=== PATIENT | male | born 1945 | race Caucasian/White ===

== ENCOUNTER 2016-10-10 06:34 | Inpatient (IN) | payer MEDICARE ==
[2016-10-10] VITALS (7 sets, daily range): BP systolic 127–151; BP diastolic 75–91
[~2016-10-10] VITALS: Ht 185.4 cm; Wt 88.6 kg
--- NOTE | 2016-10-10 09:18 | DIAGNOSTIC IMAGING REPORT ---
PROCEDURE: CT ABD/PELVIS WITH CONTRAST CLINICAL INDICATION: Epigastric pain, initial encounter TECHNIQUE: 125 ml of Isovue 300 were injected intravenously and axial images were obtained of the entire abdomen and pelvis with sagittal and coronal reformations. COMPARISON: None. FINDINGS: ABDOMEN: Dependent atelectasis in both lung bases. Heart size is normal. Small gallstones with suggestion of wall thickening. No biliary distention. Liver, pancreas, spleen, adrenal glands and kidneys are normal. Moderate atherosclerosis of the aorta. Small hiatal hernia. Nonspecific bowel gas pattern. PELVIS: Normal appendix. Mild sigmoid diverticulosis. 1.3 cm fat containing supraumbilical hernia. Mildly enlarged prostate. There is no pelvic mass, inflammatory changes or free fluid. Moderate degenerative changes. Mild chronic L1 compression fracture. IMPRESSION: 1. Cholelithiasis with suggestion of wall thickening. Recommend right upper quadrant ultrasound 2. Small hiatal hernia 3. Mild sigmoid diverticulosis 4. 1.3 cm fat-containing supraumbilical hernia. 5. Results discussed with Dr. Fischer All CT scans at this facility use dose modulation, iterative reconstruction, and/or weight-based dosing when appropriate to reduce radiation dose to as low as reasonably achievable.
--- NOTE | 2016-10-10 10:13 | ED NURSING NOTES ---
Clinical Report - Nurses [facility] [address] [place] [address] 10/10/2016 6:35 Patient: KRISTINA WEINBERG TRIAGE Triage time 06:39 Oct 10 2016. Acuity: LEVEL 3. Chief Complaint: ABDOMINAL PAIN. SEPSIS SCREEN: Sepsis Screen. Negative (no infection suspected/documented). --06:43 Priscila Lewis R.N. 06:39 10/10/16. BP: 164/118. HR: 86. RR: 24. O2 saturation: 100%. Temp: 97.8 F. Pain level now 06/03. --06:43 Priscila Lewis R.N. Weight: 87.5 kg. Height/Length: 73 inches. BMI: 25.5. --06:38 Priscila Lewis R.N. Medications Carvedilol. --06:42 Priscila Lewis R.N. LOSARTAN. --06:42 Priscila Lewis R.N. HCTZ. --06:42 Priscila Lewis R.N. Omeprazole. --06:42 Priscila Lewis R.N. Spironolactone. --06:42 Priscila Lewis R.N. Atorvastatin. --06:42 Priscila Lewis R.N. Allopurinol. --06:42 Priscila Lewis R.N. Colcrys. --06:42 Priscila Lewis R.N. Aspirin. --06:42 Priscila Lewis R.N. Glucosamine. --06:43 Priscila Lewis R.N. Multivitamin. --06:43 Priscila Lewis R.N. Subper b complex. --06:43 Priscila Lewis R.N. Vtammin d 3. --06:43 Priscila Lewis R.N. Vitamin c. --06:43 Priscila Lewis R.N. Allergies Penicillins. --06:40 Priscila Lewis R.N. Medication/allergy information source: the patient. --06:43 Priscila Lewis R.N. History Arrived by private vehicle. Historian: patient. Accompanied by family. Primary physician (John). This started just prior to arrival. Onset. (2 AM). 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 PAST MEDICAL HX: Immunizations: seasonal influenza. SOCIAL HX: Smoker- current status unknown (quit 39 years ago). Regular alcohol use; consumes beer daily. (3-4 x a week). No drug use. No recent travel. No known contact with a sick individual. ABUSE ASSESSMENT: No report of abuse. NUTRITIONAL RISK ASSESSMENT: The nutritional risk assessment revealed no deficiencies. FUNCTIONAL ASSESSMENT: Functional assessment: no impairments noted. LEARNING NEEDS ASSESSMENT: The learning needs assessment revealed no barriers. SKIN INTEGRITY ASSESSMENT: Skin integrity risk assessment completed. No skin integrity risk identified. --06:43 Priscila Lewis R.N. PROBLEMS: Left bundle branch block. Gout. Heart Disease. Hypertension. --06:40 Priscila Lewis R.N. ADDITIONAL SURGERIES: Carpal Tunnel Surgery. Cataract Surgery. Shoulder Surgery. Tonsillectomy. Wrist. --06:40 Priscila Lewis R.N. Interventions ID band on patient. --06:43 Priscila Lewis R.N. PHYSICAL ASSESSMENT 06:45 10/10/16. GENERAL / NEURO / PSYCH: Alert. Oriented X 4. Appears anxious and in distress. HEENT: Mucous membranes are pink. RESPIRATORY: Respirations not labored. Breath sounds within normal limits. CVS: Capillary refill less than 2 seconds. GI / : The patient has had nausea. Emesis noted. Has vomited several times (once in ED). Abdomen soft. Abdominal tenderness in the right upper quadrant and epigastric area. No rebound tenderness or diarrhea. No CVA tenderness or urethral discharge. No blood in the stool. ( no urinary symptoms). SKIN: Skin is warm and dry. Skin is slightly diaphoretic. --07:24 Priscila Lewis R.N. NURSING PROGRESS NOTES 06:44 10/10/16. The initial plan of care for this patient includes an assessment with efforts to address the presence of pain; impairment of the gastrointestinal system. Patient gowned. Reassurance given. Patient identifiers checked. Call light placed in reach. Side rails up x 1. Bed placed in lowest position. Brakes of bed on. Patient ready for evaluation. --06:44 Priscila Lewis R.N. 06:50 10/10/2016 Site #1 started via IV in the right antecubital space with an 18g angiocath, with aseptic technique and good blood return; one attempt. Blood drawn: rainbow set (plus lactic acid). --06:55 Priscila Lewis R.N. 07:18 10/10/2016 Zofran (Ondansetron HCl) IVP 4 mg given over 1 minute(s) via site #1. Allergies verified and confirmed 5 rights. IV patency established. IV site checked: no pain, redness, or swelling. IV flushed thoroughly pre- and post-medication administration. IVP given by RN. --07:22 Priscila Lewis R.N. 07:19 10/10/2016 Dilaudid (HYDROmorphone HCl PF) IVP 1 mg given over 1 minute(s) via site #1. Allergies verified, confirmed 5 rights and sedative warning given to the patient. IV patency established. IV site checked: no pain, redness, or swelling. IV flushed thoroughly pre- and post-medication administration. IVP given by RN. --07:22 Priscila Lewis R.N. ( Report from EMILY Francois to assume care. Pt. resting quietly, states he is much better since being medicated, now 12/02. Call light within reach.). --07:31 Sujatha Monreal R.N. 07:26 10/10/16. BP: 150/99. HR: 78. RR: 20. O2 saturation: 100%. Pain level now: 12/02. --07:31 Sujatha Monreal R.N. 07:56 10/10/2016 Dilaudid (HYDROmorphone HCl PF) IVP 1 mg given over 2 minute(s) via site #1. Allergies verified and confirmed 5 rights. IV patency established. IV site checked: no pain, redness, or swelling. IV flushed thoroughly pre- and post-medication administration. IVP given by RN. --07:56 Sujatha Monreal R.N. EKG time: (803). EKG was performed by a tech and shown to the ED physician. --08:16 Manuel Mckeon ( UA sent to lab. Pt resting quietly, call light in reach.). --08:56 Sujatha Monreal R.N. 08:56 10/10/16. BP: 148/68. HR: 74. RR: 73. O2 saturation: 95%. Pain level now: 12/02. --08:56 Sujatha Monreal R.N. ( Pt is resting comfortably in his room, refused Dilaudid at this time, reports pain is controlled, at bedside. Denies current needs.). --09:27 Ishmael King R.N. 09:15 10/10/16. BP: 120/70. HR: 90. RR: 16. O2 saturation: 98% on room air. Pain level now: 11/01. --09:27 Ishmael King R.N. 10:59 10/10/2016 Started bag #1 1000 mL IV Fluids IV NS (Saline); at 1000 mL/hr over 1 hour(s) via site #1. IV patency established. IV site checked: no pain, redness, or swelling. IV flushed thoroughly pre- and post-medication administration. --10:59 Ana Duncan R.N. 10:59 10/10/2016 Dilaudid (HYDROmorphone HCl PF) IVP 1 mg given over 2 minute(s) via site #1. Allergies verified, confirmed 5 rights and sedative warning given to the patient. IV patency established. IV site checked: no pain, redness, or swelling. IV flushed thoroughly pre- and post-medication administration. IVP given by RN. --10:59 Ana Duncan R.N. 11:01 10/10/16. Reassessment after medication administered. He is resting quietly. Overall patient status is improved- he states feels better. GI / : Denies vomiting. SKIN: Skin is warm and dry. --11:01 Ana Duncan R.N. 10:59 10/10/16. BP: 155/79. HR: 74. RR: 16. O2 saturation: 99% on room air. Pain level now: 11/01. --11:01 Ana Duncan R.N. 11:30 10/10/16. BP: 140/74. HR: 79. RR: 18 (unlabored). O2 saturation: 96% on room air. Pain level now: 12/02. --11:57 Mini Louis R.N. 11:50 pt waiting to be admitted, at bedside. pt states pain has improved. --11:[address] Dr. Whitman in to see pt prior to transporting upstairs. --12:15 Mini Louis R.N. 12:16 10/10/2016 IV Fluids IV NS Continued: upon admission at the rate of 999 mL/hr. 400 ml mL remaining bag #1. IV patency established. IV site checked: no pain, redness, or swelling. IV flushed thoroughly. --12:16 Mini Louis R.N. DISPOSITION / DISCHARGE Departure time: 1213. Condition at departure: stable. Admitted to Acute Care (309B). Transported via wheelchair by transport team. Report was given to a nurse via a phone call. Report included patient's care, treatment, medications, reviewed medication reconcilliation, and condition (including any recent changes or anticipated changes). All questions were answered. Report was acknowledged and care was transferred. (EMILY Navarro). Medication list reviewed and validated with the patient. --12:14 Mini Louis R.N. 11:30 10/10/16. BP: 140/74. HR: 79. RR: 18. O2 saturation: 96% on room air. Pain level now: 12/02. --12:14 Mini Louis R.N. 11:50 10/10/16. Temp: 97.6 F (oral). --12:22 Mini Louis R.N. Locked/Released at 10/13/2016 0:53 by Mini Louis R.N.
--- NOTE | 2016-10-10 10:13 | ED ORDER SUMMARY ---
..... Patient: KRISTINA WEINBERG OrderSheet [facility] VisitID: [id number] [address] [place] [address] 71y, M Registration Date/Time: 10/10/2016 ORDER SHEET Weight: 87.5 kg Allergies: Penicillins GENERAL ORDERS: CBC w Diff Urgent (06:54 10/10/2016 EIndergaelzen R.N. verbal order read back to Didier Ma) (Ack 6:56 AMcQuoid ER Tech1) (6:56 AMcQuoid ER Tech1) CMP Urgent (06:54 10/10/2016 EIndergaelzen R.N. verbal order read back to Didier Ma) (Ack 6:56 AMcQuoid ER Tech1) (6:56 AMcQuoid ER Tech1) Amylase Urgent (06:54 10/10/2016 EIndergaelzen R.N. verbal order read back to Didier Ma) (Ack 6:56 AMcQuoid ER Tech1) (6:56 AMcQuoid ER Tech1) Lipase Urgent (06:54 10/10/2016 EIndergaelzen R.N. verbal order read back to Didier Ma) (Ack 6:56 AMcQuoid ER Tech1) (6:56 AMcQuoid ER Tech1) Lactate, Serum Urgent (06:54 10/10/2016 EIndergaelzen R.N. verbal order read back to Didier Ma) (Ack 6:56 AMcQuoid ER Tech1) (6:56 AMcQuoid ER Tech1) NPO (06:54 10/10/2016 EInderbitzen R.N. verbal order read back to Didier Ma) (6:54 EInderbitzen R.N.) UA-Culture if indicated Urgent (07:01 10/10/2016 Didier Ma) (Ack 7:03 AMcQuoid ER Tech1) (12:20 HKone R.N.) CT Abd/Pel w Cont (No) (GRF okanita) Urgent (07:45 10/10/2016 Didier Ma) (Ack 7:47 RKarbob) (0:53 HKone R.N.) Troponin-I Urgent (07:53 10/10/2016 Didier Ma) (7:57 SStone R.N.) EKG - ER Stat (07:53 10/10/2016 Didier Ma) (7:57 SStone R.N.) US Abdomen Limited (No) Urgent (09:19 10/10/2016 Didier Ma) (Ack 9:21 RKaruga) (0:53 HKone R.N.) MEDICATION ORDERS: IV FLUIDS: IV Saline Lock (06:54 10/10/2016 EInderbitzen R.N. verbal order read back to Didier Ma) (6:55 EInderbitzen R.N.) Zofran IV 4 mg (NOW) (07:16 10/10/2016 Didier Ma) (7:22 EInderbitzen R.N.) Dilaudid IV 1 mg (HIGH ALERT MEDICATION, NOW) (07:16 10/10/2016 Didier Ma) (7:22 EInderbitzen R.N.) Dilaudid IV 1 mg (HIGH ALERT MEDICATION, NOW) (07:52 10/10/2016 Didier Ma) (Ack 7:53 SStone R.N.) (7:56 SStone R.N.) Dilaudid IV 1 mg (once now. may repeat in 15 minutes for total of 2 mg if pain still > 5/10) (09:19 10/10/2016 Didier Ma) (10:59 Jordin R.N.) IV NS : initial bolus 1000 mL (1000 mL/hr), then none - for X1 (NOW) (10:14 10/10/2016 Didier Ma) (10:59 Jordin R.N.) ORDER SHEET NOTES: [Electronically signed by Mini Louis R.N. (00:53 10/13/2016)] [Electronically signed by Jamarcus Fischer Dr. (11:27 10/15/2016)] [Electronically locked/signed by Mini Louis R.N. (00:53 10/13/2016)]
--- NOTE | 2016-10-10 10:13 | ED ORDER SUMMARY ---
..... Patient: KRISTINA WEINBERG OrderSheet [facility] VisitID: [id number] [address] [place] [address] 71y, M Registration Date/Time: 10/10/2016 ORDER SHEET Weight: 87.5 kg Allergies: Penicillins GENERAL ORDERS: CBC w Diff Urgent (06:54 10/10/2016 EIndergaelzen R.N. verbal order read back to Didier Ma) (Ack 6:56 AMcQuoid ER Tech1) (6:56 AMcQuoid ER Tech1) CMP Urgent (06:54 10/10/2016 EIndergaelzen R.N. verbal order read back to Didier Ma) (Ack 6:56 AMcQuoid ER Tech1) (6:56 AMcQuoid ER Tech1) Amylase Urgent (06:54 10/10/2016 EIndergaelzen R.N. verbal order read back to Didier Ma) (Ack 6:56 AMcQuoid ER Tech1) (6:56 AMcQuoid ER Tech1) Lipase Urgent (06:54 10/10/2016 EIndergaelzen R.N. verbal order read back to Didier Ma) (Ack 6:56 AMcQuoid ER Tech1) (6:56 AMcQuoid ER Tech1) Lactate, Serum Urgent (06:54 10/10/2016 EIndergaelzen R.N. verbal order read back to Didier Ma) (Ack 6:56 AMcQuoid ER Tech1) (6:56 AMcQuoid ER Tech1) NPO (06:54 10/10/2016 EInderbitzen R.N. verbal order read back to Didier Ma) (6:54 EInderbitzen R.N.) UA-Culture if indicated Urgent (07:01 10/10/2016 Didier Ma) (Ack 7:03 AMcQuoid ER Tech1) (12:20 HKone R.N.) CT Abd/Pel w Cont (No) (GRF okanita) Urgent (07:45 10/10/2016 Didier Ma) (Ack 7:47 RKarbob) (0:53 HKone R.N.) Troponin-I Urgent (07:53 10/10/2016 Didier Ma) (7:57 SStone R.N.) EKG - ER Stat (07:53 10/10/2016 Didier Ma) (7:57 SStone R.N.) US Abdomen Limited (No) Urgent (09:19 10/10/2016 Didier Ma) (Ack 9:21 RKaruga) (0:53 HKone R.N.) MEDICATION ORDERS: IV FLUIDS: IV Saline Lock (06:54 10/10/2016 EInderbitzen R.N. verbal order read back to Didier Ma) (6:55 EInderbitzen R.N.) Zofran IV 4 mg (NOW) (07:16 10/10/2016 Didier Ma) (7:22 EInderbitzen R.N.) Dilaudid IV 1 mg (HIGH ALERT MEDICATION, NOW) (07:16 10/10/2016 Didier Ma) (7:22 EInderbitzen R.N.) Dilaudid IV 1 mg (HIGH ALERT MEDICATION, NOW) (07:52 10/10/2016 Didier Ma) (Ack 7:53 SStone R.N.) (7:56 SStone R.N.) Dilaudid IV 1 mg (once now. may repeat in 15 minutes for total of 2 mg if pain still > 5/10) (09:19 10/10/2016 Didier Ma) (10:59 Jordin R.N.) IV NS : initial bolus 1000 mL (1000 mL/hr), then none - for X1 (NOW) (10:14 10/10/2016 Didier Ma) (10:59 Jordin R.N.) ORDER SHEET NOTES: [Electronically signed by Mini Louis R.N. (00:53 10/13/2016)] [Electronically signed by Jamarcus Fischer Dr. (11:27 10/15/2016)] [Electronically locked/signed by Mini Louis R.N. (00:53 10/13/2016)]
--- NOTE | 2016-10-10 10:13 | ED CLINICAL REPORT ---
Clinical Report - Physicians/Mid Levels [facility] [address] [place] [address] 10/10/2016 6:35 Patient: KRISTINA WEINBERG Arrived- By private vehicle. Historian- patient. HISTORY OF PRESENT ILLNESS Chief Complaint: ABDOMINAL PAIN. This started yesterday and is still present and worsening. It was abrupt in onset and has been constant but is not gone now. At its maximum, severity described as moderate. When seen in the E.D., severity described as moderate. Modifying factors- worsened by movement. Relieved by rest. It is described as sharp. No radiation. It is described as located in the epigastric area. The patient has had nausea and vomiting. No loss of appetite or diarrhea. No additional abdominal pain. No recent travel. Similar symptoms previously: None. Recent medical care: Not recently seen/assessed. REVIEW OF SYSTEMS No black stools, hematemesis, bloody stools or fever. All systems otherwise negative, except as recorded above. PAST HISTORY See nurses notes. SOCIAL HISTORY Never smoker. No alcohol use or drug use. No recent travel. Is a local resident. FAMILY HISTORY (no known family history of inflammatory bowel disease.). ADDITIONAL NOTES The nursing notes have been reviewed. PHYSICAL EXAM Vital Signs: 10/10/2016 06:39 BP: 164/118. HR: 86. RR: 24. O2 saturation: 100%. Temp: 97.8 F. Hypertensive. Oxygen saturation normal. Appearance: Alert. Oriented X3. No acute distress. Eyes: Pupils equal, round and reactive to light. Eyes normal inspection. ENT: Ears normal. Nose normal. Pharynx normal. CVS: Normal heart rate and rhythm. Heart sounds normal. Pulses normal. Respiratory: No respiratory distress. Breath sounds normal. Chest nontender. No rales, rhonchi or wheezes. Abdomen: Soft. Bowel sounds normal. No mass. (tenderness to the epigastrium. Negative Adan's however patient does have tendernessto the right upper quadrant as well with inspiration. no tenderness at McBurney's. No rebound or guarding. No masses.). Back: Normal inspection. No CVA tenderness. Skin: Skin warm and dry. Normal skin color. No rash. Normal skin turgor. Extremities: Extremities exhibit normal ROM. No lower extremity edema. LABS, X-RAYS, AND EKG EKG: No acute ischemia. Normal sinus rhythm. Rate: 68. Normal P waves. Normal SHIRA. LBBB. appropriate discordance. LBBB. sinus. The study has been interpreted contemporaneously by me. The study has been independently viewed by me. The EKG appears to be a good tracing. Abdominal CT: PROCEDURE: US ABDOMEN ULTRASOUND-LIMITED INDICATION: EPIGASTRIC ABDOMINAL PAIN TECHNIQUE: Johnson scale and color Doppler sonographic images of the abdomen were obtained. COMPARISON: CT abdomen/pelvis 10/10/2016 FINDINGS: 1.3 cm non mobile gallstone in the neck of the gallbladder with gallbladder wall thickening (7.1 mm), pericholecystic fluid and gallbladder wall hyperemia. Normal CBD measures 3.5 mm. Liver is unremarkable. Pancreas was not well visualized. Aorta and IVC are patent. Normal hepatopetal flow. Normal right kidney measures 10.9 cm. IMPRESSION: 1. 1.3 cm gallstone stuck in the neck of the gallbladder with findings consistent with acute cholecystitis. Study type: abdomen and pelvis. Abdominal CT performed with IV contrast. The study was interpreted by the radiologist and discussed with the radiologist. Abdominal Sonogram: (PROCEDURE: US ABDOMEN ULTRASOUND-LIMITED INDICATION: EPIGASTRIC ABDOMINAL PAIN TECHNIQUE: Johnson scale and color Doppler sonographic images of the abdomen were obtained. COMPARISON: CT abdomen/pelvis 10/10/2016 FINDINGS: 1.3 cm non mobile gallstone in the neck of the gallbladder with gallbladder wall thickening (7.1 mm), pericholecystic fluid and gallbladder wall hyperemia. Normal CBD measures 3.5 mm. Liver is unremarkable. Pancreas was not well visualized. Aorta and IVC are patent. Normal hepatopetal flow. Normal right kidney measures 10.9 cm. IMPRESSION: 1. 1.3 cm gallstone stuck in the neck of the gallbladder with findings consistent with acute cholecystitis). The study was independently viewed by me and interpreted by the radiologist. The study was discussed with the radiologist (via phone and pacs). Laboratory Tests: UA-Culture if indicated: (BARBARA: 10/10/2016 08:53) ( MsgRcvd 10/10/2016 09:26) Final results Test Result Flag Units (Reference) URINE COLOR YELLOW URINE APPEARANCE CLEAR URINE GLUCOSE NEGATIVE (NEGATIVE) URINE BILIRUBIN NEGATIVE (NEGATIVE) URINE KETONE TRACE (NEGATIVE) URINE SPECIFIC GRAVITY 1.010 (1.010-1.030) URINE PH 6.5 (5.0-8.0) URINE PROTEIN TRACE (NEGATIVE) URINE UROBILINOGEN 0.2 EU/dL (0.2-1.0) URINE NITRITE NEGATIVE (NEGATIVE) URINE BLOOD NEGATIVE (NEGATIVE) URINE LEUK ESTERASE NEGATIVE (NEGATIVE) URINE RBC NONE SEEN rbc/hpf (0-1) URINE WBC NONE SEEN wbc/hpf (0-1) URINE EPITHELIAL CELLS 3-5 EPI/hpf (0-5) URINE BACTERIA NONE SEEN (NONE SEEN) URINE COMMENT CULT NOT INDICATED TRACE MUCUSURINE CULTURES ARE SET-UP BASED ON THE FOLLOWING CRITERIA:POSITIVE NITRITEPOSITIVE LEUKOCYTE ESTERASEGREATER THAN 10 WHITE BLOOD CELLSMODERATE (2+) OR GREATER BACTERIA CBC w Diff: (BARBARA: 10/10/2016 06:50) ( [facility] 10/10/2016 07:10) Final results Test Result Flag Units (Reference) WHITE BLOOD COUNT 9.2 K/uL (4.5-11.5) RED BLOOD COUNT 4.12 L M/uL (4.50-5.90) HEMOGLOBIN 13.7 gm/dL (13.5-17.5) HEMATOCRIT 39.6 L % (41.0-53.0) MEAN CELL VOLUME 96 fL (80-100) MEAN CORPUSCULAR HGB 33 pg (26-34) MEAN CORPUSCULAR HGB CONC 35 g/dL (31-37) RED CELL DISTRIBUTION WIDTH 12.6 % (11.6-14.8) PLATELET COUNT 185 K/uL (150-400) NEUTROPHIL % 80.5 H % (50-75) LYMPH % 15.5 L % (25-40) MONO % 3.0 % (3-14) EOSINOPHIL % 0.8 % (0-4) BASOPHIL % 0.2 % (0-2) Troponin-I: (BARBARA: 10/10/2016 06:50) ( [facility] 10/10/2016 10:46) Final results Test Result Flag Units (Reference) TROPONIN I <0.05 ng/mL (0.00-1.5) TROPONIN REFERENCE RANGE:<0.1 NEGATIVE0.1-1.5 INDETERMINANT>1.5 POSITIVE Lactate, Serum: (BARBARA: 10/10/2016 06:50) ( MsgRcvd 10/10/2016 07:48) Final results Test Result Flag Units (Reference) LACTIC ACID 3.0 H mmol/L (0.4-2.0) CMP: (BARBARA: 10/10/2016 06:50) ( MsgRcvd 10/10/2016 07:32) Final results Test Result Flag Units (Reference) GLUCOSE 128 H mg/dL (70-110) BUN 19 H mg/dL (7-18) CREATININE 1.2 mg/dL (0.6-1.3) Estimated GFR >60 mL/min Estimated GFR- >60 mL/min Note: Persistent reduction over 3 months in eGFR<60 mL/min/1.73 m2 defines CKD. Patients with eGFR values>=60 mL/min/1.73 m2 may also have CKD if evidence ofpersistent proteinuria. Additional information may be foundat www.kidney.org. SODIUM 131 L mmol/L (136-145) POTASSIUM 3.7 mmol/L (3.5-5.1) CHLORIDE 97 L mmol/L (98-107) CARBON DIOXIDE 26 mmol/L (21-32) CALCIUM 9.6 mg/dL (8.5-10.1) TOTAL PROTEIN 7.5 g/dL (6.4-8.2) ALBUMIN 4.5 g/dL (3.3-5.0) BILIRUBIN, TOTAL 0.9 mg/dL (0.0-1.0) ALKALINE PHOSPHATASE 88 U/L (46-116) AST (SGOT) 23 U/L (15-37) ALT (SGPT) 36 U/L (12-78) LIPASE 365 U/L (73-393) AMYLASE 66 U/L (25-115) . PROGRESS AND PROCEDURES Course of Care: The patient is a pleasant 71-year-old malewith no pertinent past medical history presented for evaluation of epigastric abdominal pain. There is some concern that the patient was having chest pain. An EKG was ordered. No acute upper maladies noted on the patient's EKG. Patient has tenderness to the epigastrium. Patient be evaluated with laboratory studies for reduction of epigastric abdominal pain as well as CT scan. Because of the patient's age, multiple diagnoses are possible including acute cholecystitis, appendicitis, hepatitis,gastric esophageal reflux, and small bowel obstruction. Because of the differential diagnosis, CT scan would be the best imaging choice at this time. Patient is agreeable to treatment plan. Medications for pain provided. Patient is nontoxic. Vital signsare noted to be unremarkable. Workup shows patient to have an unremarkable laboratory study. CT scan of the abdomen and pelvis show patient with possible acute cholecystitis. I had discussed theCT scan findings with radiology. At this time, the CT scan results are equivocal however foracute cholecystitisand are requestingultrasound evaluation. I spoke with the patient in regards to the CT scan result findings. Patient is agreeable to ultrasound. Ultrasound has been ordered. The ultrasound confirms the patient to have acute cholecystitis. I've spoken with the general surgeon. Patient is to be admitted under t Patienthad a order set form printed outunder the general surgeon's recommendations. This form is filled out andlaced in the patient's chart for admission. Orders were placed. He had updated patient in regards to the diagnosis, workup, and plan of care. All questions answered. Patient is agreeable to the treatment and plan. Patient is accompanied by per patient'srequest. They reported knowing approximately 4 patients who had her gallbladder taken out by the general surgeon. Patient appears to be nontoxic and pain is improved by here in the emergency department. Did not the patient is being admitted to the intensive care unit. No further recommendations made from general surgery. Critical care performed (50 minutes). Time is exclusive of separately billable procedures. Time includes: direct patient care, patient reassessment, coordination of patient care, review of patient's medical records, medical consultation, family consultation regarding treatment decisions and documentation of patient care. Consult obtained. General surgery. Disposition: Discharged. Condition: good. (Electronically signed by Jamarcus Fischer Dr. 10/15/2016 11:27)
--- NOTE | 2016-10-10 12:24 | DIAGNOSTIC IMAGING REPORT ---
PROCEDURE: US ABDOMEN ULTRASOUND-LIMITED INDICATION: EPIGASTRIC ABDOMINAL PAIN TECHNIQUE: Johnson scale and color Doppler sonographic images of the abdomen were obtained. COMPARISON: CT abdomen/pelvis 10/10/2016 FINDINGS: 1.3 cm non mobile gallstone in the neck of the gallbladder with gallbladder wall thickening (7.1 mm), pericholecystic fluid and gallbladder wall hyperemia. Normal CBD measures 3.5 mm. Liver is unremarkable. Pancreas was not well visualized. Aorta and IVC are patent. Normal hepatopetal flow. Normal right kidney measures 10.9 cm. IMPRESSION: 1. 1.3 cm gallstone stuck in the neck of the gallbladder with findings consistent with acute cholecystitis 2. Results discussed with Dr. Fischer
[2016-10-10] MEDS ORDERED: CARVEDILOL6.25 MG PO (12:57)
[2016-10-10] MEDS ORDERED: LOSARTAN POTASS1 TA1 PO (12:58)
[2016-10-10] MEDS ORDERED: PRILOSEC20 MG PO (12:59)
[2016-10-10] MEDS ORDERED: ALDACTONE25 MG PO (13:00)
[2016-10-10] MEDS ORDERED: ATORVASTATIN CA10 MG PO (13:00)
[2016-10-10] MEDS ORDERED: ALLOPURINOL300 MG PO (13:01)
[2016-10-10] MEDS ORDERED: COLCRYS0.6 MG PO (13:02)
[2016-10-10] MEDS ORDERED: ASPIRIN ADULT L81 MG PO (13:02)
[2016-10-10] MEDS ORDERED: GLUCOSAMINE1500 COM PO (13:03)
[2016-10-10] MEDS ORDERED: MULTIPLE VITAMIN PO (13:03)
[2016-10-10] MEDS ORDERED: VITAMIN B 650 MG PO (13:05)
[2016-10-10] MEDS ORDERED: VITAMIN D-31000 UNIT PO (13:06)
--- NOTE | 2016-10-10 13:06 | CONSULTATION REPORT ---
DATE OF CONSULTATION: 10/10/2016 CHIEF COMPLAINT: Epigastric right upper quadrant abdominal pain HISTORY OF PRESENT ILLNESS: The patient is a 73-year-old male who approximately 10 hours ago awoke with epigastric right upper quadrant abdominal pain, which he described as quite severe. 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 At home, he vomited 2 or 3 times without any relief. States he does not have any fever or chills. The pain is localized in the right upper quadrant radiating into his back. In the emergency department, he had an ultrasound and CT scan of his abdomen and the results are consistent with acute cholecystitis. The patient denies any prior history of abdominal pain. MEDICATIONS: 1. Lisinopril 10 mg daily. 2. Simvastatin 40 mg daily. ALLERGIES: 1. PENICILLIN. MEDICAL/SURGICAL HISTORY: Significant for tonsillectomy, adenoidectomy, bilateral cataract extraction, right carpal tunnel release, the patient had ORIF of left facial fracture reduction internal fixation orbit and zygoma. He is status post colonoscopy in 2010, status post left knee replacement, status post right shoulder open rotator cuff repair and had ORIF of his right hand. 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 He is . He has 5 stepchildren. They are alive and well. The patient drinks anywhere between 0-3 drinks per day of whiskey and an occasional glass of wine. The patient does not smoke and drinks 3-4 cups of coffee the day. 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 FAMILY HISTORY: Mother at age 52 complications female cancer. Father at age 80 for postop complications of hip fracture. The patient has 2 brothers, 1 sister. He has very little contact with them. He states that they are alive and he thinks they are in good health. REVIEW OF SYSTEMS: The patient denies any history of hepatitis, jaundice, rheumatic fever, blood transfusion, heart murmurs requiring antibiotics or rheumatic fever. The remaining 12-point review of systems is negative. PHYSICAL EXAMINATION: GENERAL: The patient does not appear to be in acute distress. He is awake, alert , conversant. HEENT: Normocephalic, atraumatic. Pupils equal and reactive. No evidence of scleral icterus. External auditory canals clear. No nasal septal defect or discharge. Throat is clear. Moist mucous membranes. NECK: Supple. No JVD, carotid bruit or adenopathy. LUNGS: Clear. No rales, rhonchi, or wheezing. HEART: Regular rhythm, no murmurs. ABDOMEN: Nondistended. The patient is slightly tender in the right upper quadrant. No masses appreciable. EXTREMITIES: Full range of motion, active and passively. No pretibial or ankle edema. SKIN: Warm and dry with no evidence of icterus and no evidence of peripheral cyanosis. NEUROLOGIC: The patient is grossly intact with no focal motor neurologic deficits. LYMPHATICS: No cervical, supraclavicular, axillary, or groin adenopathy. LAB/IMAGING: CAT scan and ultrasound reviewed, consistent with acute cholecystitis. White count 9.2, total bilirubin 0.9, alkaline phosphatase 88, lipase 365. IMPRESSION: 1. Symptomatic cholelithiasis, probable acute cholecystitis. PLAN: Laparoscopic cholecystectomy. The procedure has been explained to the patient including potential risk of conversion to open procedure, hemorrhage, bleeding, retained stone, bile leak, damage to local structures, i.e., stomach, small bowel, damage to the major ductal system requiring rerouting of the small intestine to the liver, pancreatitis, pneumonia, pulmonary embolus. The patient understands and agrees to proceed. All questions at this point have been answered to his satisfaction. We will schedule appropriately.
--- NOTE | 2016-10-10 13:06 | CONSULTATION REPORT ---
DATE OF CONSULTATION: 10/10/2016 CHIEF COMPLAINT: Epigastric right upper quadrant abdominal pain HISTORY OF PRESENT ILLNESS: The patient is a 73-year-old male who approximately 10 hours ago awoke with epigastric right upper quadrant abdominal pain, which he described as quite severe. 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 At home, he vomited 2 or 3 times without any relief. States he does not have any fever or chills. The pain is localized in the right upper quadrant radiating into his back. In the emergency department, he had an ultrasound and CT scan of his abdomen and the results are consistent with acute cholecystitis. The patient denies any prior history of abdominal pain. MEDICATIONS: 1. Lisinopril 10 mg daily. 2. Simvastatin 40 mg daily. ALLERGIES: 1. PENICILLIN. MEDICAL/SURGICAL HISTORY: Significant for tonsillectomy, adenoidectomy, bilateral cataract extraction, right carpal tunnel release, the patient had ORIF of left facial fracture reduction internal fixation orbit and zygoma. He is status post colonoscopy in 2010, status post left knee replacement, status post right shoulder open rotator cuff repair and had ORIF of his right hand. 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 He is . He has 5 stepchildren. They are alive and well. The patient drinks anywhere between 0-3 drinks per day of whiskey and an occasional glass of wine. The patient does not smoke and drinks 3-4 cups of coffee the day. 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 FAMILY HISTORY: Mother at age 52 complications female cancer. Father at age 80 for postop complications of hip fracture. The patient has 2 brothers, 1 sister. He has very little contact with them. He states that they are alive and he thinks they are in good health. REVIEW OF SYSTEMS: The patient denies any history of hepatitis, jaundice, rheumatic fever, blood transfusion, heart murmurs requiring antibiotics or rheumatic fever. The remaining 12-point review of systems is negative. PHYSICAL EXAMINATION: GENERAL: The patient does not appear to be in acute distress. He is awake, alert , conversant. HEENT: Normocephalic, atraumatic. Pupils equal and reactive. No evidence of scleral icterus. External auditory canals clear. No nasal septal defect or discharge. Throat is clear. Moist mucous membranes. NECK: Supple. No JVD, carotid bruit or adenopathy. LUNGS: Clear. No rales, rhonchi, or wheezing. HEART: Regular rhythm, no murmurs. ABDOMEN: Nondistended. The patient is slightly tender in the right upper quadrant. No masses appreciable. EXTREMITIES: Full range of motion, active and passively. No pretibial or ankle edema. SKIN: Warm and dry with no evidence of icterus and no evidence of peripheral cyanosis. NEUROLOGIC: The patient is grossly intact with no focal motor neurologic deficits. LYMPHATICS: No cervical, supraclavicular, axillary, or groin adenopathy. LAB/IMAGING: CAT scan and ultrasound reviewed, consistent with acute cholecystitis. White count 9.2, total bilirubin 0.9, alkaline phosphatase 88, lipase 365. IMPRESSION: 1. Symptomatic cholelithiasis, probable acute cholecystitis. PLAN: Laparoscopic cholecystectomy. The procedure has been explained to the patient including potential risk of conversion to open procedure, hemorrhage, bleeding, retained stone, bile leak, damage to local structures, i.e., stomach, small bowel, damage to the major ductal system requiring rerouting of the small intestine to the liver, pancreatitis, pneumonia, pulmonary embolus. The patient understands and agrees to proceed. All questions at this point have been answered to his satisfaction. We will schedule appropriately.
[2016-10-10] MEDS ORDERED: VITAMIN C500 M1 PO (13:07)
--- NOTE | 2016-10-10 14:31 | HISTORY AND PHYSICAL ---
ADMITTED: 10/10/2016 CHIEF COMPLAINT: 1. Abdominal pain HISTORY OF PRESENT ILLNESS: A 71-year-old male who presents with abdominal pain, worse in the right upper quadrant, with onset at approximately 0200 on the day of admission. He states it is quite severe, worse in the right abdomen than the left. He had some vomiting on the day of admission, which did not seem to improve the pain. He denies bright red blood per rectum, melena or hematemesis. He denies fevers or chills. ER evaluation showed findings consistent with acute cholecystitis. Consultation was obtained with Dr. Nogueira, who plans surgery, but requests admission to [place] to evaluate the medical condition and follow medical condition during hospitalization. MEDICAL/SURGICAL HISTORY: Past medical history: Remarkable for hypertension, hyperlipidemia, left bundle branch block, history of chest pain, history of nonischemic cardiomyopathy, history of chronic systolic heart failure, benign prostatic hypertrophy, GERD, pneumonia, foot cellulitis, and gout. Surgeries: Rotator cuff surgery, hand surgery, cataract surgery, tonsillectomy, coronary angiography in 10/2012, with normal coronary arteries. MEDICATIONS: 1. Vitamin C, 1 p.o. daily. 2. Spironolactone 25 mg p.o. daily. 3. Prilosec 20 mg p.o. daily. 4. Colcrys 0.6 mg tablets, 1 p.o. t.i.d. p.r.n. gout attack. 5. Glucosamine 1500 mg p.o. daily. 6. Atorvastatin 10 mg p.o. daily. 7. Losartan 50/12.5, one p.o. daily. 8. Carvedilol 6.25 mg p.o. b.i.d. 9. Aspirin 81 mg p.o. daily. ALLERGIES: 1. LISINOPRIL. 2. AMOXICILLIN. 3. PENICILLIN. SOCIAL HISTORY: Retired, single with a partner. [employer]. Hobbies include cars and music. Smoking: Quit. Alcohol: None. Drug use: None. FAMILY HISTORY: ------- REVIEW OF SYSTEMS: General: The patient denies fevers, chills, or malaise. HEENT : Denies vision change, hearing change, sore throat. Respiratory: Denies shortness of breath, cough, wheezing. Cardiac: Denies chest pain, palpitations, history of heart murmur. Denies shortness of breath when lying flat. Gastrointestinal: See above. Genitourinary: Denies dysuria, hematuria, or excessive frequency. PHYSICAL EXAMINATION: VITAL SIGNS: Blood pressure 127/91, pulse 82, respirations 21, temperature 97.2, SaO2 97% on room air. GENERAL: Well-developed, well-nourished male in no acute distress, relaxed- appearing. HEENT: Clear. NECK: Supple, without adenopathy or thyromegaly. CHEST: Clear to auscultation and percussion. HEART: Regular rate and rhythm without murmur. ABDOMEN: Moderately tender right upper quadrant. No rebound or guarding. BACK: Straight, without CVA tenderness. EXTREMITIES: Without cyanosis, clubbing, or edema. NEUROLOGIC: Intact and symmetric. SKIN: Unremarkable. GENITAL AND RECTAL: Deferred. LAB/IMAGING: WBC 9.2, hemoglobin 13.7, hematocrit 39.6, platelets 185, lactic acid 3.0. Sodium 131, potassium 3.7, chloride 97, bicarbonate 26, BUN 19, creatinine 1.2, glucose 128. Lactic acid 3.0. Troponin less than 0.05, alkaline phosphatase 88, ALT 36, AST 23, total bilirubin 0.9. Lipase 365, amylase 66. Urinalysis clear. Imaging: CT abdomen revealed cholelithiasis with suggestion of wall thickening, small hiatal hernia, mild sigmoid diverticulosis, and a 1.3 cm fat-containing supraumbilical hernia. Abdominal ultrasound read by radiology as showing 1.3 cm gallstone stuck in the neck of the gallbladder, and findings consistent with acute cholecystitis. IMPRESSION: 1. Acute cholecystitis 2. Chronic systolic heart failure, controlled. 3. Nonischemic cardiomyopathy. 4. Left bundle branch block. 5. Hyperlipidemia. 6. Hypertension. 7. Gastroesophageal reflux disease. PLAN: Admit to [facility]. Surgical consultation with Dr. Nogueira, who has seen the patient and planned surgery. The patient is medically stable for surgery. We will follow up postop care.
--- NOTE | 2016-10-10 15:22 | DIAGNOSTIC IMAGING REPORT ---
PROCEDURE: XR INTRAOPERATIVE LAP OG INDICATION: LAP OG WITH IOC TECHNIQUE: Intraoperative fluoroscopy provided for Dr. Nogueira performing an intraoperative cholangiogram following cholecystectomy. Total fluoroscopy time 0.07-minute Cumulative dose 3.6 mGy. COMPARISON: Abdominal ultrasound 10/10/2016 FINDINGS: One intraoperative fluoroscopic spot images of the right upper quadrant of the abdomen demonstrate cannulation of the cystic duct stump and opacification of the intrahepatic and extrahepatic biliary tree. There are no filling defects. There is normal passage of contrast into the duodenum. IMPRESSION: 1. Negative intraoperative cholangiogram.
--- NOTE | 2016-10-10 19:43 | OPERATIVE REPORT ---
DATE OF SURGERY: 10/10/2016 SURGEON: Kayla Nogueira III, MD DAIRY EQUIPMENT REPAIRER: None. PREOPERATIVE DIAGNOSES: 1. Acute cholecystitis 2. Cholelithiasis POSTOPERATIVE DIAGNOSES: 1. Acute cholecystitis 2. Cholelithiasis PROCEDURES PERFORMED: 1. Laparoscopic cholecystectomy 2. Fluoroscopic intraoperative cholangiogram ANESTHESIA: General endotracheal. INDICATIONS: The patient is a 71-year-old male admitted to [facility] via the emergency department where he presented with acute onset epigastric right upper quadrant abdominal pain. CT scan and ultrasound were consistent with cholelithiasis, acute cholecystitis, total bilirubin normal, as was the alkaline phosphatase and the lipase. SURGICAL FINDINGS: The patient was noted to have hydrops of the gallbladder. Fluoroscopic intraoperative cholangiogram showing free flow of contrast material into the duodenum, with no evidence of retained stone. Visualization of hepatic radicles, hepatic duct, and common bile duct. SURGICAL TECHNIQUE: The patient was brought to the operating room and placed in the dorsal supine position, where he was administered TIVA and monitored closely by anesthesia. After proper anesthesia had taken effect, the patient's abdomen was prepped using Betadine and draped in a sterile fashion. An infraumbilical incision was made, carried down through skin and subcutaneous tissue. A Veress needle was inserted through this site, into the abdominal cavity and, after ascertaining its appropriate position, with suction irrigation, pneumoperitoneum obtained using CO2 insufflation to approximately 14-15 mmHg pressure. Once this pressure was reached, the Veress needle was removed and replaced with a 10 mm trocar. The trocar was removed, leaving the sleeve behind, through which a laparoscopic video camera was introduced into the abdominal cavity. Under direct visualization, a separate 10 mm trocar was placed in the subxiphoid region. Two 5 mm trocars were placed in the anterolateral abdominal wall. Each entered the abdominal cavity under direct visualization. The trocars were removed, leaving the sleeves behind, through which laparoscopic instrumentation was introduced into the abdominal cavity. The gallbladder was grasped. Adhesions to the anterior wall of gallbladder were taken down carefully using electrocautery dissection. We were able then to identify the cystic duct after first circumferentially isolating it using a combination of blunt dissection and electrocautery. A clip was placed at the junction of the neck of the gallbladder and the cystic duct. A small incision was made in the anterior surface of the cystic duct. A percutaneous cholangiogram catheter was threaded through the anterior abdominal wall, into the cystic duct, clipped into position , and a fluoroscopic intraoperative cholangiogram obtained with the aforementioned findings noted. Once completed, the percutaneous cholangiogram catheter was retrieved from the cystic duct and the abdominal wall. The distal cystic duct was clipped in continuity, divided. The cystic artery was identified, clipped in continuity and divided. The gallbladder was taken down from its bed in a retrograde fashion using electrocautery dissection. It should be noted that the posterior wall of the gallbladder was quite edematous. Once the gallbladder was freed from its bed, it was placed in a sterile specimen container bag and retrieved from the abdominal cavity and sent to pathology. The gallbladder bed was inspected for hemostasis. Assuring to have proper hemostasis, the right upper quadrant was irrigated copiously with warm normal saline and antibiotic solution and the irrigant suctioned out. Approximately 30 mL of 0.5% Marcaine with epinephrine were then sprayed over the right and left dome of the liver for postoperative analgesia. The pneumoperitoneum was released and all trocars were removed from the abdominal cavity. All trocar sites approximated using 4-0 subdermal Polysorb and Steri-Strips. A sterile pressure occlusive dressing was placed over each site. The patient tolerated the procedure well, was extubated and transferred to the recovery room in stable condition. There were no intraoperative or anesthetic complications.
[2016-10-11 02:48] VITALS: BP 116/63
[2016-10-11] MEDS ORDERED: HYCET1 ML PO (06:31)
--- NOTE | 2016-10-11 06:32 | Provider's Discharge Care Plan ---
Problem, Goal, Plan Problem List 1. S/P laparoscopic cholecystectomy Goals: Improve disease control, Therapeutic intervention Instructions: Follow up as directed, Take meds as directed
--- NOTE | 2016-10-11 06:32 | Provider's Discharge Care Plan ---
Problem, Goal, Plan Problem List 1. S/P laparoscopic cholecystectomy Goals: Improve disease control, Therapeutic intervention Instructions: Follow up as directed, Take meds as directed
[2016-10-11 07:48] VITALS: BP 135/76
--- NOTE | 2016-10-11 07:51 | DISCHARGE SUMMARY ---
ADMIT DATE: 10/10/2016 DISCHARGE DATE: 10/11/2016 ADMISSION DIAGNOSES: 1. Acute cholecystitis. 2. Congestive heart failure, controlled. 3. Nonischemic cardiomyopathy. 4. Left bundle branch block. 5. Hyperlipidemia. 6. Hypertension. 7. Gastroesophageal reflux disease. DISCHARGE DIAGNOSES: 1. Acute cholecystitis. 2. Congestive heart failure, controlled. 3. Nonischemic cardiomyopathy. 4. Left bundle branch block. 5. Hyperlipidemia. 6. Hypertension. 7. Gastroesophageal reflux disease. BRIEF HISTORY: The patient presented with increasing abdominal pain, diagnosed in the emergency with acute cholecystitis. The patient was admitted to myself with Dr. Nogueira consulting. HOSPITAL COURSE: The patient was taken to the operating theater, laparoscopic cholecystectomy performed without complication. The patient's recovery was unremarkable. PHYSICAL EXAMINATION: VITAL SIGNS: On the day of discharge, vital signs are stable. LUNGS: Clear. HEART: Regular rate and rhythm without murmur. ABDOMEN: Benign. EXTREMITIES: Without cyanosis, clubbing, or edema. Wounds were clean and dry. DISPOSITION: Home. DISCHARGE MEDICATIONS/INSTRUCTIONS: Hydrocodone 7.5/325, 15 mL p.o. q.6 hours p.r.n. pain. Other medications are continued as prior to admission.
[2016-10-11 10:50] VITALS: BP 130/76
--- NOTE | 2016-10-15 11:27 | ED MED RECONCILIATION SUMMARY ---
Patient: KRISTINA WEINBERG Medication Reconciliation Report [facility] VisitID: [id number] [address] [place] [address] 71y, M Registration Date/Time: 10/10/2016 Weight: 87.5 kg Height/Length: 73 in. BMI: 25.5 ALLERGIES: Penicillins The patient's Home Medications are listed below: THE FOLLOWING MEDICATIONS NEED TO BE RECONCILED: Allopurinol Aspirin Atorvastatin Carvedilol Colcrys Glucosamine HCTZ LOSARTAN Multivitamin Omeprazole Spironolactone Subper b complex Vitamin c Vtammin d 3 The source(s) of the original Home Medication information: patient The following Medications were given to the patient in the Emergency Department: Zofran [IVP] IVP 4 mg, administered: 10/10/2016 7:18:00 AM Dilaudid [IVP] IVP 1 mg, administered: 10/10/2016 7:19:00 AM Dilaudid [IVP] IVP 1 mg, administered: 10/10/2016 7:56:00 AM IV NS IV Fluids bolus 0, then 1000 mL/hr, administered: 10/10/2016 10:59:00 AM Dilaudid [IVP] IVP 1 mg, administered: 10/10/2016 10:59:00 AM The following Medications were prescribed to the patient: None.
--- NOTE | 2016-10-15 11:27 | ED MAR SUMMARY ---
..... Medication Administration Record [facility] [address] [place] [address] Patient: KRISTINA WEINBERG Visit ID: [id number] 71y, M Weight: 87.5 kg Height/Length: 73 in BMI: 25.5 ALLERGIES: Penicillins Given 07:18 10/10/2016 Priscila Lewis R.N. Medication Administered: ZOFRAN [IVP] (ONDANSETRON HCL), Dose: 4 mg IVP over 1 minute(s), Site: #1 right AC. Medication Ordered: Zofran IV 4 mg (NOW). Given 07:19 10/10/2016 Priscila Lewis R.N. Medication Administered: DILAUDID [IVP] (HYDROMORPHONE HCL PF), Dose: 1 mg IVP over 1 minute(s), Site: #1 right AC. Medication Ordered: Dilaudid IV 1 mg (HIGH ALERT MEDICATION, NOW). Given 07:56 10/10/2016 Sujatha Monreal R.N. Medication Administered: DILAUDID [IVP] (HYDROMORPHONE HCL PF), Dose: 1 mg IVP over 2 minute(s), Site: #1 right AC. Medication Ordered: Dilaudid IV 1 mg (HIGH ALERT MEDICATION, NOW). Given 10:59 10/10/2016 Ana Duncan R.N. Medication Administered: DILAUDID [IVP] (HYDROMORPHONE HCL PF), Dose: 1 mg IVP over 2 minute(s), Site: #1 right AC. Medication Ordered: Dilaudid IV 1 mg (once now. may repeat in 15 minutes for total of 2 mg if pain still > 5/10). Start 10:59 10/10/2016 Ana Duncan R.N., Continued Upon Admission 12:10/10/2016 Mini Louis R.N. Medication Administered: IV NS (SALINE), Dose: IV Fluids over 1 hour(s), Rate: 1000 mL/hr, Dispensed: 1000 mL bag, Site: #1 right AC. Medication Ordered: IV NS : initial bolus 1000 mL (1000 mL/hr), then none - for X1 (NOW).
--- NOTE | 2016-10-15 11:27 | ED MED RECONCILIATION SUMMARY ---
Patient: KRISTINA WEINBERG Medication Reconciliation Report [facility] VisitID: [id number] [address] [place] [address] 71y, M Registration Date/Time: 10/10/2016 Weight: 87.5 kg Height/Length: 73 in. BMI: 25.5 ALLERGIES: Penicillins The patient's Home Medications are listed below: THE FOLLOWING MEDICATIONS NEED TO BE RECONCILED: Allopurinol Aspirin Atorvastatin Carvedilol Colcrys Glucosamine HCTZ LOSARTAN Multivitamin Omeprazole Spironolactone Subper b complex Vitamin c Vtammin d 3 The source(s) of the original Home Medication information: patient The following Medications were given to the patient in the Emergency Department: Zofran [IVP] IVP 4 mg, administered: 10/10/2016 7:18:00 AM Dilaudid [IVP] IVP 1 mg, administered: 10/10/2016 7:19:00 AM Dilaudid [IVP] IVP 1 mg, administered: 10/10/2016 7:56:00 AM IV NS IV Fluids bolus 0, then 1000 mL/hr, administered: 10/10/2016 10:59:00 AM Dilaudid [IVP] IVP 1 mg, administered: 10/10/2016 10:59:00 AM The following Medications were prescribed to the patient: None.
--- NOTE | 2016-10-15 11:27 | ED MAR SUMMARY ---
..... Medication Administration Record [facility] [address] [place] [address] Patient: KRISTINA WEINBERG Visit ID: [id number], M Weight: 87.5 kg Height/Length: 73 in BMI: 25.5 ALLERGIES: Penicillins Given 07:18 10/10/2016 Priscila Lewis R.N. Medication Administered: ZOFRAN [IVP] (ONDANSETRON HCL), Dose: 4 mg IVP over 1 minute(s), Site: #1 right AC. Medication Ordered: Zofran IV 4 mg (NOW). Given 07:19 10/10/2016 Priscila Lewis R.N. Medication Administered: DILAUDID [IVP] (HYDROMORPHONE HCL PF), Dose: 1 mg IVP over 1 minute(s), Site: #1 right AC. Medication Ordered: Dilaudid IV 1 mg (HIGH ALERT MEDICATION, NOW). Given 07:56 10/10/2016 Sujatha Monreal R.N. Medication Administered: DILAUDID [IVP] (HYDROMORPHONE HCL PF), Dose: 1 mg IVP over 2 minute(s), Site: #1 right AC. Medication Ordered: Dilaudid IV 1 mg (HIGH ALERT MEDICATION, NOW). Given 10:59 10/10/2016 Ana Duncan R.N. Medication Administered: DILAUDID [IVP] (HYDROMORPHONE HCL PF), Dose: 1 mg IVP over 2 minute(s), Site: #1 right AC. Medication Ordered: Dilaudid IV 1 mg (once now. may repeat in 15 minutes for total of 2 mg if pain still > 5/10). Start 10:59 10/10/2016 Ana Duncan R.N., Continued Upon Admission 12:10/10/2016 Mini Louis R.N. Medication Administered: IV NS (SALINE), Dose: IV Fluids over 1 hour(s), Rate: 1000 mL/hr, Dispensed: 1000 mL bag, Site: #1 right AC. Medication Ordered: IV NS : initial bolus 1000 mL (1000 mL/hr), then none - for X1 (NOW).
== END 2016-10-11 11:23 | disposition home or self-care (01) | DRG 418 ==
LOC: ED SRH 06:34 → TRANS SRH 11:43 → ACUTE3 SRH 11:43 → TRANS SRH 11:43 → ACUTE3 SRH 12:47
PROVIDERS: Specialist; ADMIT Student in an Organized Health Care Education/Training Program
PROC: BF101ZZ Fluoroscopy of Bile Ducts using Low Osmolar Contrast (ICD-10-PCS; principal; 2016-10-10 13:30)
PROC: 0FT44ZZ Resection of Gallbladder, Percutaneous Endoscopic Approach (ICD-10-PCS; principal; 2016-10-10 13:30)
DX: K80.00 Calculus of gallbladder with acute cholecystitis without obstruction (principal); K82.1 Hydrops of gallbladder; I50.22 Chronic systolic (congestive) heart failure; I42.9 Cardiomyopathy, unspecified; I11.0 Hypertensive heart disease with heart failure; I44.7 Left bundle-branch block, unspecified; E78.5 Hyperlipidemia, unspecified; K21.9 Gastro-esophageal reflux disease without esophagitis; M10.9 Gout, unspecified
CPT/HCPCS: 50002; 60001; 70002; 80102; 80248; 82669; 82794; 82807; 83338; 83339; 83348; 83587; 83920; 83937; 83982; 84038; 90004; 90074; 90100; 90616; 92031; 92235; 92520; 92530; 92540; 92720; 95059